=== PATIENT | female | born 1980 | race Caucasian/White ===

== ENCOUNTER 2023-08-04 16:16 | Outpatient (CLI) | payer OTHER, BC ==
--- NOTE | 2023-08-04 18:35 | XRAY Report ---
PROCEDURE: Ankle 3 View RT INDICATIONS: SPRAIN OF UNSPECIFIED LIGAEMENT OF RIGHT ANKLE TECHNIQUE: 3 views of the ankle were acquired. COMPARISON: None. FINDINGS: Bones: No acute fractures or dislocations. Ankle mortise is normally aligned. No suspicious bony l esions. Soft tissues: Mild soft tissue edema overlying the lateral malleolus. IMPRESSION: Mild nonspecific soft tissue edema. No acute osseous abnormality. If there is clinical co ncern or persistent symptoms, additional imaging such as repeat radiographs or advanced imaging (e.g. CT, MRI) may be helpful for further evaluation. Reviewed by: Alessio Martinez MD on 08/04/2023 6:34 PM PDT Approved by: Alessio Martinez MD on 08/04/2023 6:34 PM PDT Station ID: [id number]
== END 2023-08-04 16:17 | disposition home or self-care (01) ==
LOC: DI 16:16
PROVIDERS: ATTEND Physician Assistant Medical
DX: S93.401A Sprain of unspecified ligament of right ankle, initial encounter (principal)

== ENCOUNTER 2023-11-12 07:30 | Outpatient (CLI) | payer BC, OTHER | END 2023-11-12 07:45 | disposition home or self-care (01) | LOC: LAB.N 07:30 | PROVIDERS: ATTEND Nurse Practitioner | DX: N39.0 Urinary tract infection, site not specified (principal) | CPT/HCPCS: 87086 ==

== ENCOUNTER 2023-11-12 15:43 | Emergency (ER) | payer BC ==
[2023-11-12 15:55] VITALS: O2SAT 99
[2023-11-12 16:50] LABS: BILIRUBIN,URINE NEGATIVE (NEGATIVE)
[2023-11-12 16:54] LABS: CLARITY,URINE CLOUDY (CLEAR)
--- NOTE | 2023-11-12 17:01 | ED Physician Documentation ---
PD HPI FEMALE - Stated complaint Stated Complaint: - Chief complaint Chief Complaint: Abd Pain - History obtained from History obtained from: Patient - Additional information Additional information: Patient is a 43-year-old female with no significant prior medical history presenting for evaluation of abdominal pain along with difficulty urinating since Friday. Patient states she went to the walk-in clinic earlier today was only able to give a drop of urine. They started her on Pyridium and Bactrim and wanted her to give a specimen for urine culture but she was not able to give 1 to the lab. She denies any recent surgeries or procedures. She denies any current medications. Denies any issues at this previously. Denies feeling UTI symptoms over the weekend or noticing any blood in her urine. Reports feeling uncomfortable starting today and recalls yesterday wanting to go to the bathroom but not being able to do so very well. No fevers. No chest pain or shortness of air. Review of Systems Constitutional: denies: Fever Cardiac: denies: Chest pain / pressure Respiratory: denies: Dyspnea : reports: Unable to Void PD PAST MEDICAL HISTORY - Past Medical History Past Medical History: No - Past Surgical History Past Surgical History: Yes HEENT: Tonsil/Adenoidectomy - Allergies Allergies/Adverse Reactions: Allergies Allergy/AdvReac Type Severity Reaction Status Date / Time codeine Allergy Edema Verified 11/12/23 15:53 - Social History Does the pt smoke?: No Smoking Status: Never smoker Does the pt drink ETOH?: Yes Does the pt have substance abuse?: No - Immunizations Immunizations are current?: Yes PD ED PE NORMAL - General General: Alert and oriented X 3, No acute distress, Well developed/nourished - HEENT HEENT: Atraumatic - Neck Neck: Supple, no meningeal sign - Cardiac Cardiac: RRR - Respiratory Respiratory: No respiratory distress, Clear bilaterally - Abdomen Abdomen: Normal bowel sounds, Soft, Non distended, Other (Mild suprapubic tenderness, patient reportedly feels much better after Gamino insertion. Dark yellow orange-colored urine in catheter) - Derm Derm: Warm and dry - Neuro Neuro: Normal speech Results - Vitals Vitals: Vital Signs - 24 hr 11/12/23 11/12/23 11/12/23 15:49 16:37 18:26 Temperature 36.0 C L 36.7 C 36.6 C Heart Rate 121 H 84 67 Respiratory 16 18 17 Rate Blood Pressure 131/80 H 107/72 110/72 O2 Saturation 99 99 99 Oxygen O2 Source Room air - Labs Labs: Laboratory Tests 11/12/23 11/12/23 11/12/23 16:26 16:45 17:07 WBC 13.7 H RBC 5.00 Hgb 14.3 Hct 42.6 MCV 85.2 MCH 28.6 MCHC 33.6 RDW 12.8 Plt Count 203 MPV 10.8 Neut # (Auto) 12.4 H Lymph # (Auto) 0.7 L [place] # (Auto) 0.4 Eos # (Auto) 0.0 Baso # (Auto) 0.0 Absolute Nucleated RBC 0.00 Nucleated RBC % 0.0 Sodium Potassium Chloride Carbon Dioxide Anion Gap BUN Creatinine Estimated GFR (MDRD) Glucose Calcium Urine Color ORANGE Urine Clarity CLOUDY Urine pH 6.0 Ur Specific [employer] 1.020 Urine Protein Urine Glucose (UA) Urine Ketones Urine Occult Blood Urine Nitrite Urine Bilirubin NEGATIVE Urine Urobilinogen Ur Leukocyte Esterase Urine RBC 0-5 Urine WBC 0-3 Ur Squamous Epith Cells MOD Squamous H Urine Bacteria Few Ur Microscopic Review INDICATED Urine Culture Comments NOT INDICATED Urine HCG, Qual NEGATIVE 11/12/23 17:07 WBC RBC Hgb Hct MCV MCH MCHC RDW Plt Count MPV Neut # (Auto) Lymph # (Auto) [place] # (Auto) Eos # (Auto) Baso # (Auto) Absolute Nucleated RBC Nucleated RBC % Sodium 136 Potassium 3.7 Chloride 103 Carbon Dioxide 24 Anion Gap 9.0 BUN 11 Creatinine 0.8 Estimated GFR (MDRD) 78 L Glucose 125 H Calcium 9.5 Urine Color Urine Clarity Urine pH Ur Specific [employer] Urine Protein Urine Glucose (UA) Urine Ketones Urine Occult Blood Urine Nitrite Urine Bilirubin Urine Urobilinogen Ur Leukocyte Esterase Urine RBC Urine WBC Ur Squamous Epith Cells Urine Bacteria Ur Microscopic Review Urine Culture Comments Urine HCG, Qual PD Medical Decision Making - ED course Complexity details: reviewed results, re-evaluated patient, d/w patient, d/w family ED course: Patient is a 43-year-old female with difficulty urinating for the past 2 days an d now having abdominal discomfort. Was seen at the walk-in clinic earlier today but not able to give much of a urine specimen but was started on Bactrim and Pyridium. Bladder scan has at least a liter. Gamino catheter was placed and patient had significant improvement in her symptoms and feeling much better. Urine was sent for testing but as patient has been taking Pyridium it is difficult to interpret. CBC and chemistries were obtained given duration of her symptoms for the past 2 days. Mild leukocytosis. No signs of acute kidney injury. Patient counseled regarding Gamino care as well as need for removal. She is instructed to continue with antibiotic course. Will send urine for culture. Patient also counseled on concerning symptoms to return for. Repeat abdominal exam is benign post catheter placement. Departure - Departure Disposition: 01 Home, Self Care Clinical Impression: Urinary retention Condition: Stable Instructions: ED Retention Urinary Female Follow-Up: Matthieu Pierre MD [Provider Admit Priv/Credential] - Comments: You are found to have urinary retention which means that your bladder is not emptying. We have placed a catheter in which should be kept in place for approximately 1 week. Please call the urologist or your PCP for close follow-up in order to have this removed. Continue taking the Bactrim that you were recently prescribed. We have also sent your urine for culture. Return to the ER with any worsening symptoms. Forms: PCP List Discharge Date/Time: 11/12/23 18:27
[2023-11-12 17:06] LABS: BACTERIA,URINE Few /HPF (None Seen); RBC,URINE 0-5 /HPF (0-5); WBC,URINE 0-3 /HPF (0-5)
[2023-11-12 17:07] LABS: SQUAMOUS EPITHELIAL CELL,UR MOD Squamous (<= Few)
[2023-11-12 17:08] LABS: HCG UR QUAL NEGATIVE
[2023-11-12 17:14] LABS: BASOPHILS % (AUTO) 0.3 %; EOSINOPHILS % (AUTO) 0.1 %; HCT - HEMATOCRIT 42.6 % (37.0-47.0); HGB - HEMOGLOBIN 14.3 g/dL (12.0-16.0); LYMPHOCYTES # (AUTO) 0.7 10^3/uL (1.5-3.5); LYMPHOCYTES % (AUTO) 5.4 %; MEAN CORPUSCULAR HEMOGLOBIN 28.6 pg (27.0-31.0); MEAN CORPUSCULAR HGB CONC 33.6 g/dL (32.0-36.0); MEAN CORPUSCULAR VOLUME 85.2 fL (81.0-99.0); MEAN PLATELET VOLUME 10.8 fL (7.9-10.8); MONOCYTES # (AUTO) 0.4 10^3/uL (0.0-1.0); MONOCYTES % (AUTO) 2.7 %; NEUTROPHILS # (AUTO) 12.4 10^3/uL (1.5-6.6); PLT - PLATELET COUNT 203 10^3/uL (130-450); RED CELL DISTRIBUTION WIDTH 12.8 % (12.0-15.0); WHITE BLOOD COUNT 13.7 x10^3/uL (4.8-10.8)
[2023-11-12 17:28] LABS: CALCIUM 9.5 mg/dL (8.5-10.3); CREATININE 0.8 mg/dL (0.6-1.3); POTASSIUM 3.7 mmol/L (3.5-4.5)
[2023-11-12 18:33] VITALS: BP 110/72
== END 2023-11-12 18:27 | disposition home or self-care (01) ==
LOC: ED 15:43
DX: R33.9 Retention of urine, unspecified (principal)
CPT/HCPCS: 36415; 51702; 51798; 80048; 81001; 81003; 81025; 85025; 87086; 99283; 99284

== ENCOUNTER 2024-01-27 10:58 | Day surgery (SDC) | payer BC ==
[~2024-01-27 10:58] MED LIST: ceFAZolin 2 GM VIAL ONE
[2024-01-27] MEDS: LACTATED RINGERS 1,000 ML IV ONE (11:12)
[2024-01-27 11:22] LABS: HCG UR QUAL NEGATIVE
[2024-01-27] MEDS: SCOPOLAMINE PATCH TOP ONE (12:29)
[2024-01-27] MEDS ORDERED: MORPHINE 2 MG/ML CARPUJECT IVP PRN (12:31)
[2024-01-27] MEDS ORDERED: fentaNYL 100 MCG/2 ML VIAL IVP PRN (12:31)
[2024-01-27] MEDS ORDERED: ONDANSETRON 4 MG/2 ML VIAL IVP PRN ×2 (12:31→13:55)
[2024-01-27] MEDS ORDERED: ATROPINE ABBOJECT 1 MG/10 ML SYRINGE IVP PRN (12:31)
[2024-01-27] MEDS ORDERED: NALOXONE 0.4 MG/ML VIAL IVP PRN (12:31)
[2024-01-27] MEDS ORDERED: HYDROmorphone 0.5 MG/0.5 ML SYRINGE IVP PRN (12:31)
--- NOTE | 2024-01-27 12:33 | ANESTHESIA ---
Pre-Anesthesia VS, & Labs - Diagnosis bladder tumor - Procedure cystoscopy with TURBT Vital Signs: Temp Pulse Resp BP Pulse Ox O2 Flow Rate 36.6 C 78 16 117/82 H 99 01/27/24 11:20 01/27/24 11:20 01/27/24 11:20 01/27/24 11:20 01/27/24 11:20 Height: 5 ft 8 in Weight (kg): 91.9 kg Body Mass Index: 30.8 BMI Classification: Obese - NPO >8 hours - Is Patient ?: No Home Medications and Allergies Home Medications: Ambulatory Orders Cetirizine [ZyrTEC] 10 mg PO DAILY 01/23/24 Ibuprofen [Motrin] 600 mg PO Q6H PRN 01/23/24 Active Medications Atropine Sulfate (Atropine Abboject 1 Mg/10 Ml Syringe) 0.5 mg IVP Q5M PRN PRN Reason: Bradycardia Stop: 01/28/24 12:32 Fentanyl (Fentanyl 100 Mcg/2 Ml Vial) 25 - 50 mcg IVP Q5M PRN PRN Reason: BREAKTHROUGH PAIN (2nd Choice) Stop: 01/28/24 12:32 Hydromorphone HCl (Hydromorphone 0.5 Mg/0.5 Ml Syringe) 0.2 - 0.6 mg IVP Q5M PRN PRN Reason: PAIN (First Choice) Stop: 01/28/24 12:32 Lactated Ringer's (Lr) 1,000 mls @ 100 mls/hr IV .Q10H ANNE-MARIE Stop: 01/27/24 22:59 Morphine Sulfate (Morphine 2 Mg/Ml Carpuject) 2 - 4 mg IVP Q5M PRN PRN Reason: PAIN (3rd Choice) Stop: 01/28/24 12:32 Naloxone HCl (Naloxone 0.4 Mg/Ml Vial) 0.1 mg IVP Q2M PRN PRN Reason: RESP RATE <8 Stop: 01/28/24 12:32 Ondansetron HCl (Ondansetron 4 Mg/2 Ml Vial) 4 mg IVP ONCE PRN PRN Reason: N/V (First Choice) Stop: 01/28/24 12:32 Cetirizine [ZyrTEC] 10 mg PO DAILY 01/23/24 Ibuprofen [Motrin] 600 mg PO Q6H PRN 01/23/24 Allergies/Adverse Reactions: Allergies Allergy/AdvReac Type Severity Reaction Status Date / Time codeine Allergy Anaphylaxis Verified 01/23/24 12:00 Anes History & Medical History - Anesthetic History Anesthesia Complications: reports: No previous complications - Medical History Cardiovascular: reports: Murmur Pulmonary: reports: None Gastrointestinal: reports: None Urinary: reports: None Neuro: reports: None Musculoskeletal: reports: None Endocrine/Autoimmune: reports: None Skin: reports: None Smoking Status: Never smoker Psychosocial: reports: No issues indicated History of Cancer?: No - Surgical History Eyes Ears Nose Throat (EENT): reports: Tonsil/Adenoidectomy Exam General: Alert, Oriented x3, Cooperative, No acute distress Dental: WNL Mouth Openin Fingerbreadth Neck Mobility: Normal Mallampati classification: II Thyromental Distance: 4-6 cm Mental/Cognitive Status: Alert/Oriented X3, Normal for patient Plan Anesthesia Type: General Consent for Procedure(s) Verified and Reviewed: Yes Code Status: Attempt Resuscitation ASA classification: 2-Mild systemic disease Is this case an emergency?: No
[2024-01-27] MEDS ORDERED: PROPOFOL 200 MG/20 ML VIAL IVP ONE (12:51)
[2024-01-27] MEDS ORDERED: MIDAZOLAM 2 MG/2 ML VIAL ONE (12:51)
[2024-01-27] MEDS ORDERED: ROCURONIUM 50 MG/5 ML VIAL ONE (12:51)
[2024-01-27] MEDS ORDERED: fentaNYL 100 MCG/2 ML VIAL ONE (12:51)
[2024-01-27] MEDS ORDERED: LIDOCAINE 2% URO-JET 5 ML SYRINGE UR ONE (12:56)
[2024-01-27] MEDS ORDERED: SCOPOLAMINE PATCH TOP SCH (13:00)
[2024-01-27] MEDS ORDERED: LACTATED RINGERS 1,000 ML IV SCH (13:00)
[2024-01-27] MEDS ORDERED: DEXAMETHASONE 4 MG/ML VIAL ONE (13:20)
[2024-01-27] MEDS ORDERED: ONDANSETRON 4 MG/2 ML VIAL ONE (13:20)
[2024-01-27] MEDS ORDERED: SUGAMMADEX 200 MG/2 ML VIAL IVP ONE (13:30)
[2024-01-27] MEDS: LIDOCAINE 2% URO-JET 5 ML SYRINGE UR ONE (13:53)
--- NOTE | 2024-01-27 14:05 | Discharge Plan ---
Discharge Plan Problem Reviewed?: Yes Disposition: Home, Self Care Condition: Good Prescriptions: Docusate Sodium 100Mg Capsule [Colace 100Mg Capsule] 100 mg PO DAILY #7 cap traMADol [Ultram] 50 mg PO ONCE PRN #4 tablet PRN Reason: Pain >8 Diet: Regular Activity Restrictions: Additional Comments (as instructed) Shower Restrictions: No Driving Restrictions: No Instruction Topics: Transureth Bladder Tumor Resect Dc No Smoking: If you smoke, Please STOP! Call for help. Follow-up with: Matthieu Pierre MD [Provider Admit Priv/Credential] -
[2024-01-27] MEDS: LACTATED RINGERS 200 ML IV ONE (14:07)
--- NOTE | 2024-01-27 14:12 | OPERATIVE REPORT ---
Operative Report - General Procedure Date: 01/27/24 Planned Procedure: Cystoscopy, transurethral resection of bladder tumor Pre-Op Diagnosis: bladder mass, urinary retention Procedure Performed: Cystoscopy, transurethral resection of bladder tumor Post Op Diagnosis: bladder mass, urinary retention - Procedure Note Primary Surgeon: Ignacio Anesthesia Provider: ALBERTO Teague Anesthesia Technique: General LMA Pathology: bladder mass Estimated Blood Loss (mL): 0 Drain/Tube Type: Other (22f 3 way, 3rd port capped) Findings: papillary frond like mass in urethra large mass effect from posterior bladder wall Firm constipation noted on examination Complications: none - Other Other Information/Narrative: After informed consent was obtained the patient was brought to the OR and laid in the supine position. At that point time she was anesthetized per anesthesia protocols. She placed in dorsolithotomy position. She was prepped and draped in usual sterile fashion. A formal timeout was performed reconfirming the patient, procedure and laterality. A 26 Russian resectoscope was advanced easily into urinary bladder. Upon entering the bladder we could see 2 papillary frond-like projections emanating from the bilateral proximal bladder neck which appeared large enough that they could possibly block the urine flow. The rest of her bladder had no mucosal abnormalities though she was noted to have very large mass effect from the posterior wall, the possibly related to constipation. Using loop electrocautery and the bipolar setting of these 2 lesions were resected and sent for analysis. Spot cautery was used for hemostasis. A 22 Russian three-way Gamino catheter with a third port was placed, 30 cc was placed in the balloon. An exam under anesthesia was notable for firm constipation noted posterior to her vagina. This concluded the procedure the patient tolerated the procedure well. She was brought to the PACU that further incident. She will follow-up in a few weeks time for pathology discussion. She will remove the catheter on Friday morning. All counts were correct
--- NOTE | 2024-01-27 14:34 | ANESTHESIA POST OP EVALUATION ---
Anesthesia Post Eval - Post Anesthesia Eval Vitals: Last Vital Signs Temp 36.4 C L 01/27/24 14:18 Pulse 76 01/27/24 14:18 Resp 16 01/27/24 14:18 BP 111/74 01/27/24 14:18 Pulse Ox 100 01/27/24 14:18 O2 Flow Rate CV Function Including HR & BP: Stable Pain Control: Satisfactory Nausea & Vomiting: Negative Mental Status: Baseline Respiratory Status: Airway Patent Hydration Status: Satisfactory Anesthesia Complications: None
[2024-01-27 15:33] VITALS: BP 118/78; O2SAT 98
== END 2024-01-27 10:59 | disposition home or self-care (01) ==
LOC: SDS 10:58
PROVIDERS: ATTEND Urology
PROC: 0TBC8ZZ Excision of Bladder Neck, Via Natural or Artificial Opening Endoscopic (ICD-10-PCS; principal; 2024-01-27 12:15)
DX: D30.3 Benign neoplasm of bladder (principal); R33.8 Other retention of urine; K59.00 Constipation, unspecified; E66.9 Obesity, unspecified; Z68.30 Body mass index [BMI] 30.0-30.9, adult
CPT/HCPCS: 52500; 81025; J3490; J7120

== ENCOUNTER 2024-02-25 07:00 | Outpatient (CLI) | payer BC | END 2024-02-25 07:15 | disposition home or self-care (01) | LOC: LAB.N 07:00 | PROVIDERS: ATTEND Family Medicine | DX: N39.0 Urinary tract infection, site not specified (principal) | CPT/HCPCS: 87086 ==